=== PATIENT | male | born 1980 | race African-American/Black ===

== ENCOUNTER 2022-07-16 11:57 | Emergency (ER) | payer OTHER ==
[2022-07-16 12:35] VITALS: BP 105/69; PULSE 81; RESP 17; TEMP 98.4; BMI 27.8
== END 2022-07-16 14:13 | disposition home or self-care (01) ==
LOC: JER 11:57
DX: T82.868A Thrombosis due to vascular prosthetic devices, implants and grafts, initial encounter (principal)
CPT/HCPCS: 99281-25